=== PATIENT | female | born 1935 | race Caucasian/White ===

== ENCOUNTER 2016-04-14 14:00 | Outpatient (CLI) | payer MEDICARE, BC | END 2016-04-14 14:01 | disposition home or self-care (01) | LOC: HPCALD 14:00 | PROVIDERS: ATTEND Family Medicine | DX: I48.0 Paroxysmal atrial fibrillation (principal) ==

== ENCOUNTER 2016-04-14 14:16 | Outpatient (CLI) | payer MEDICARE, BC ==
--- NOTE | 2016-04-14 20:18 | RAD ---
CHEST TWO VIEWS 04/14/16 Comparison is made with the 03/22/15 study. The heart is normal in size. Calcification is seen in the aortic arch. No lobar consolidations or ef fusions were seen. It is ever so slightly more hazy in the right lower lobe than it was previously, but the finding is borderline at best. I cannot absolutely rule out an early infiltrate here, but th e finding is truly equivocal. The lungs are otherwise clear. IMPRESSION: Equivocal prominence of a few of the right lower lobe markings which may or may not be significant. POS: HOME
== END 2016-04-14 14:17 | disposition home or self-care (01) ==
LOC: BURRAD 14:16
PROVIDERS: ATTEND Family Medicine
DX: J06.9 Acute upper respiratory infection, unspecified (principal)
CPT/HCPCS: 71020

== ENCOUNTER 2016-04-15 15:44 | Outpatient (CLI) | payer MEDICARE, BC ==
[2016-04-15 16:37] LABS: Prothrombin Time 21.1 SEC (12.0-14.7)
== END 2016-04-15 15:45 | disposition home or self-care (01) ==
LOC: HPCALD 15:44
PROVIDERS: ATTEND Family Medicine
DX: I48.2 Chronic atrial fibrillation (principal)
CPT/HCPCS: 36415; 85610

== ENCOUNTER 2016-04-27 15:59 | Outpatient (CLI) | payer MEDICARE, BC ==
[2016-04-27 16:15] LABS: Prothrombin Time 27.4 SEC (12.0-14.7)
== END 2016-04-27 16:00 | disposition home or self-care (01) ==
LOC: HPCALD 15:59
PROVIDERS: ATTEND Family Medicine
DX: I48.91 Unspecified atrial fibrillation (principal)
CPT/HCPCS: 36415; 85610

== ENCOUNTER 2016-05-23 11:28 | Outpatient (CLI) | payer MEDICARE, BC, OTHER ==
[2016-05-23 13:17] LABS: Prothrombin Time 25.6 SEC (12.0-14.7)
== END 2016-05-23 11:29 | disposition home or self-care (01) ==
LOC: HPCALD 11:28
PROVIDERS: ATTEND Family Medicine
DX: I48.0 Paroxysmal atrial fibrillation (principal)
CPT/HCPCS: 36415; 85610

== ENCOUNTER 2016-06-20 15:03 | Outpatient (CLI) | payer MEDICARE, BC ==
[2016-06-20 15:26] LABS: Prothrombin Time 26.4 SEC (12.0-14.7)
== END 2016-06-20 15:04 | disposition home or self-care (01) ==
LOC: HPCALD 15:03
PROVIDERS: ATTEND Family Medicine
DX: I48.0 Paroxysmal atrial fibrillation (principal)
CPT/HCPCS: 36415; 85610

== ENCOUNTER 2016-08-04 13:53 | Outpatient (CLI) | payer MEDICARE, BC, OTHER ==
[2016-08-04 14:24] LABS: Prothrombin Time 22.9 SEC (12.0-14.7)
== END 2016-08-04 13:54 | disposition home or self-care (01) ==
LOC: HPCALD 13:53
PROVIDERS: ATTEND Family Medicine
DX: I48.0 Paroxysmal atrial fibrillation (principal)
CPT/HCPCS: 36415; 85610

== ENCOUNTER 2016-10-14 14:16 | Outpatient (CLI) | payer BC, MEDICARE ==
[2016-10-14 14:49] LABS: INR-International Normal Ratio 1.9; Prothrombin Time 22.7 SEC (12.0-14.7)
== END 2016-10-14 14:17 | disposition home or self-care (01) ==
LOC: HPCALD 14:16
PROVIDERS: ATTEND Family Medicine
DX: I48.0 Paroxysmal atrial fibrillation (principal)
CPT/HCPCS: 36415; 85610

== ENCOUNTER 2016-11-23 14:09 | Outpatient (CLI) | payer MEDICARE ==
[2016-11-23 14:26] LABS: INR-International Normal Ratio 1.5; Prothrombin Time 18.7 SEC (12.0-14.7)
== END 2016-11-23 14:10 | disposition home or self-care (01) ==
LOC: HPCALD 14:09
PROVIDERS: ATTEND Family Medicine
DX: Z51.81 Encounter for therapeutic drug level monitoring (principal); I48.0 Paroxysmal atrial fibrillation; Z79.01 Long term (current) use of anticoagulants
CPT/HCPCS: 36415; 85610

== ENCOUNTER 2017-10-02 08:55 | Emergency (ER) | payer MEDICARE | END 2017-10-02 09:20 | disposition home or self-care (01) | LOC: BURERS 08:55 | DX: H11.32 Conjunctival hemorrhage, left eye (principal); E78.5 Hyperlipidemia, unspecified; I10 Essential (primary) hypertension; I48.91 Unspecified atrial fibrillation; Z86.718 Personal history of other venous thrombosis and embolism | CPT/HCPCS: 99282 ==

== ENCOUNTER 2018-05-27 09:48 | Emergency (ER) | payer MEDICARE ==
--- NOTE | 2018-05-27 16:29 | RAD ---
LUMBAR SPINE THREE VIEWS: 05/27/2018 FINDINGS: Scoliosis, convex right, is present. No acute fracture is seen. There is no dislocation. Degenerat ed disks are noted at multiple levels, including L3-L4, L4-L5, and L5-S1. Disk space narrowing and o steophytes are present at each level, as well as vacuum phenomenon. Anterior osteophytes are promine nt in the lower lumbar levels. The aorta is partially calcified. The SI joints are symmetrical. IMPRESSION: Scoliosis and advanced degenerative disk disease, particularly in the lower lumbar spine. Cross-sect ional imaging would be needed to assess any neural impingement. POS: HOME
== END 2018-05-27 10:57 | disposition home or self-care (01) ==
LOC: BURERS 09:48
DX: M54.32 Sciatica, left side (principal); I10 Essential (primary) hypertension; I48.91 Unspecified atrial fibrillation; Z86.718 Personal history of other venous thrombosis and embolism; Z79.891 Long term (current) use of opiate analgesic; Z79.899 Other long term (current) drug therapy
CPT/HCPCS: 72100

== ENCOUNTER 2018-08-16 09:02 | Outpatient (CLI) | payer MEDICARE ==
--- NOTE | 2018-08-16 18:23 | ULT ---
RIGHT LOWER EXTREMITY VENOUS ULTRASOUND 08/16/18 Color duplex Doppler ultrasonography of the deep veins of the right lower extremity was performed. Al l deep veins were freely compressible from groin to ankle and there was normal Doppler responses to a ugmentation maneuvers. There were a few areas, for example in the common femoral region, we wondered if there might be a little residual remaining from her prior clot. I do not have a prior scan to comp are with however. IMPRESSION: No evidence of DVT. There may be small amounts of residual from a prior clot but there are no finding s typical of acute clot. POS: HOME
== END 2018-08-16 09:03 | disposition home or self-care (01) ==
LOC: BURULT 09:02
PROVIDERS: ATTEND Family Medicine
DX: M79.89 Other specified soft tissue disorders (principal)

== ENCOUNTER 2018-09-08 17:42 | Emergency (ER) | payer MEDICARE | END 2018-09-08 18:15 | disposition home or self-care (01) | LOC: BURERS 17:42 | DX: J18.1 Lobar pneumonia, unspecified organism (principal); H72.91 Unspecified perforation of tympanic membrane, right ear; I10 Essential (primary) hypertension; E78.5 Hyperlipidemia, unspecified; I48.91 Unspecified atrial fibrillation; Z86.718 Personal history of other venous thrombosis and embolism; Z79.899 Other long term (current) drug therapy | CPT/HCPCS: 99283 ==

== ENCOUNTER 2018-09-10 08:20 | Inpatient (IN) | payer MEDICARE ==
[2018-09-10 08:49] LABS: #Basophils 0.1 thou/uL (0.0-0.2); #Lymphocytes 1.5 thou/uL (1.20-3.40); #Monocytes 0.8 thou/uL (0.11-0.59); #Neutrophils 7.4 thou/uL (1.40-6.50); %Basophils 0.7 % (0.0-1.0); %Eosinophils 0.3 % (0.0-10.0); %Lymphocytes 14.9 % (21.0-51.0); %Monocytes 8.3 % (0.0-10.0); %Neutrophils 75.8 % (42.0-75.0); Hemoglobin 12.6 g/dL (12.0-16.0); Mean Corpuscular HGB CONC 32.2 g/dL (32.0-36.0); Mean Corpuscular Hemoglobin 30.9 pg (27.0-31.0); Mean Corpuscular Volume 95.8 fL (78.0-98.0); Mean Platelet Volume 7.7 fL (7.4-10.4); Platelet Count 264 thou/uL (130-400); RBC Distribution Width 11.6 % (11.5-14.5); Red Blood Cell (RBC) Count 4.09 mill/uL (4.20-5.40); White Blood Cell (WBC) Count 9.7 thou/uL (4.8-10.8)
--- NOTE | 2018-09-10 08:51 | RAD ---
RADIOGRAPH CHEST 2 VIEWS: DATE: 09/10/2018 HISTORY: 83-year-old female with cough FINDINGS: There is no airspace density, pulmonary edema, pleural effusion, pneumothorax, or cardiomegaly. Promi nent interstitial markings at bases of bilateral lower lobes, probably chronic. IMPRESSION: No acute cardiopulmonary findings.
[2018-09-10 09:04] LABS: ALT (SGPT) 20 U/L (8-55); AST (SGOT) 31 U/L (5-34); Albumin 3.4 g/dL (3.4-4.8); Alkaline Phosphatase 59 U/L (40-150); Anion Gap 12 mmol/L (10-20); BUN (Urea Nitrogen) 18 mg/dL (9.8-20.1); Bilirubin, Total 0.7 mg/dL (0.2-1.2); Calc. Creatinine Clearance 0 mL/min (70-130); Calcium 9.2 mg/dL (7.8-10.44); Carbon Dioxide 28 mmol/L (23-31); Chloride 102 mmol/L (98-107); Estimated GFR-MDRD 40; Globulin 3.3 g/dL (2.4-3.5); Glucose 117 mg/dL (83-110); Potassium 3.3 mmol/L (3.5-5.1); Protein, Total 6.7 g/dL (6.0-8.3); Sodium 139 mmol/L (136-145)
[2018-09-10] MEDS ORDERED: Sodium Chloride 0.9% 100 ML ONE (09:57)
[2018-09-10] MEDS ORDERED: cefTRIAXone\\ROCEPHIN 1 GM VIAL ONE (09:57)
[2018-09-10 10:06] LABS: INR-International Normal Ratio 1.9; PTT 34.5 SEC (22.9-36.1); Prothrombin Time 21.6 SEC (12.0-14.7)
[2018-09-10 11:39] VITALS: BMI 25.8
[2018-09-10] MEDS ORDERED: Gabapentin 300 MG CAP PO SCH (18:30)
[2018-09-10] MEDS ORDERED: Potassium Chloride 20 MEQ TAB PO ONE (18:30)
[2018-09-10] MEDS: Famotidine 20 MG TAB PO SCH (20:36)
[2018-09-10] MEDS: Magnesium Oxide 400 MG TAB PO SCH (20:36)
--- NOTE | 2018-09-11 01:17 | HP ---
CHIEF COMPLAINT: Persistent cough. HISTORY OF PRESENT ILLNESS: Ms. Ramires is an 83-year-old female, who presented to the emergency department today with complaints of minimally productive cough with reported onset early last week. She was evaluated in the ambulatory setting by Denise Stone, Nurse practitioner, who diagnosed her with postnasal drip and a nonproductive cough and treated the patient with Flonase and Mucinex DM plus benzonatate 200 mg. The patient states she also had diarrhea that started on September 05. She had no associated nausea or vomiting. She did have some sinus pressure during this period of time, but denies rhinorrhea or ear pain. She noted some bloody discharge from the right ear canal on September 07, but was not associated with any pain. The cough apparently worsened along with guarding of the abdomen and diarrhea, and the patient presented to the [place] ER on September 08. At that time, she was diagnosed with right lower lobe pneumonia based on the clinical exam. No imaging was performed at that time, and a perforated right TM. She was given a prescription for Levaquin 500 mg daily. She was discharged to home, but reports that she continued to cough. The diarrhea resolved. She presented back for re-evaluation today due to associated fatigue. She states now that the cough is productive of scant amount of sputum that is slightly discolored. Otherwise she has no new complaints. PAST MEDICAL HISTORY: 1. Atrial fibrillation. 2. Hypertension. 3. Hyperlipidemia. 4. History of DVT. 5. Varicose veins. 6. History of diverticulosis. 7. Personal history of colon polyps. 8. Lumbar degenerative arthritis at multiple levels. PAST SURGICAL HISTORY: 1. Vein stripping approximately 45 years ago. 2. Tonsillectomy. 3. Removal of throat "cyst" in 2007. 4. 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 5. Right lower extremity squamous cell carcinoma removal in October 2011. 6. Right middle finger release in April 2012. 7. Last colonoscopy, March of 2013. 8. Left hand surgery in 2016. 9. Venous ablation of small saphenous vein in 2017. SOCIAL HISTORY: Denies tobacco, alcohol, or illicit drug use. She is . Full code status. FAMILY HISTORY: Noncontributory. The patient received her Prevnar, November of 2014, and Pneumovax January of 2011, as well as her yearly influenza vaccination. ALLERGIES: PENICILLIN. MEDICATIONS: 1. Mucinex DM 1200/60 one p.o. daily. 2. Warfarin 3 mg p.o. daily. 3. Klor-Con 10 one p.o. daily. 4. Multivitamin one p.o. daily. 5. Magnesium oxide one p.o. b.i.d. 6. Lisinopril/HCTZ 20/25 one p.o. daily. 7. Gabapentin 300 mg two in the morning, one at noon, and three at bedtime. 8. Benzonatate 200 mg p.o. q.8 hours p.r.n. cough. 9. Lipitor 40 mg p.o. daily. 10. Amlodipine 5 mg p.o. daily. 11. Levaquin 500 mg p.o. daily, prescribed September 08. REVIEW OF SYSTEMS: GENERAL: The patient denies fever. Positive fatigue and generalized weakness since onset of her current symptoms. HEENT: Denies any vision changes. Remainder as per HPI. CARDIOVASCULAR: Denies chest pain, palpitations, orthopnea, or PND. History of atrial fibrillation. RESPIRATORY: Denies associated shortness of breath with cough. No hemoptysis. GI: Last episode of diarrhea was on September 08 without any episodes on September 09 or today. No nausea or vomiting. Abdominal pain associated with the severe cough to the right upper quadrant, which was mainly present on September 08, but has resolved now. GENITOURINARY: The patient reports an episode of incontinence, which is not completely out of character for her, but deems that was secondary and associated with a cough. Denies dysuria or incomplete voiding. LYMPH: The patient with chronic swelling of the right lower extremity greater than the left lower extremity secondary to venous stasis. HEMATOLOGIC: Denies bleeding other than the little bit that she noted in the ear canal late last week. PSYCHIATRIC: Denies depression or anxiety. She has had some slow progressive memory decline over the past several years. NEUROLOGICAL: Denies any focal weakness, numbness, or paresthesias. PHYSICAL EXAMINATION: VITAL SIGNS: In the emergency room, blood pressure 125/84, pulse 84, 97% O2 saturation on room air, respirations 19, temperature 98.5, 6/10 pain. Per the ER physician, the patient's O2 saturation dropped down to 90% with cough observed. At my exam, temperature 99.1, pulse 91, respirations 20, 94% O2 saturation on room air, and blood pressure 131/71. GENERAL: Well-developed, well-nourished female, who is alert, oriented to person, place, and time, in no acute distress. HEENT: Normocephalic and atraumatic. Pupils are equally round and reactive to light and accommodation. Extraocular muscles intact. Nares are patent without discharge. Tongue protrudes in the midline. Per ED physician, the right TM is perforated. NECK: Supple without lymphadenopathy, thyromegaly, JVD, or bruit. HEART: Regular rate, but irregular rhythm. Normal S1 and S2. No murmurs, clicks, rubs, or gallops. LUNGS: Crackles to the right base, diminished left base, otherwise clear to auscultation. No wheezes or increased work of breathing. Dry cough noted. GI: Positive bowel sounds in all four quadrants. Soft, nontender, and nondistended. No masses, guarding, or rebound tenderness. EXTREMITIES: No cyanosis or clubbing. Trace ankle edema with venous stasis changes on the left, 1 mm pretibial edema on the right with venous stasis changes and pink discoloration. NEUROLOGIC: Cranial nerves 2 through 12 grossly intact. No focal deficits. LABORATORY DATA: White count 9.7 with 76% neutrophils, 15% lymphocytes, hemoglobin 12.6, hematocrit 39.2, platelets 264. PT 21.6, INR 1.9, PTT 35.5. Sodium 139, potassium 3.3, chloride 102, bicarb 28, BUN 18, creatinine 1.26, glucose 117, calcium 9.2, AST 31, ALT 20, alkaline phosphatase 59, albumin 3.4. Blood culture x2 and sputum culture and gram stain obtained in the ER pending. Chest x-ray shows no acute cardiopulmonary findings, but there are some interstitial markings at the bilateral bases. ASSESSMENT AND PLAN: 1. Community acquired pneumonia. The patient essentially has failed outpatient treatment and will be admitted for IV antibiotics, DuoNebs, followup of cultures, and imaging. We will prescribe antitussives p.r.n. Given the patient's history of diarrhea, if this reoccurs, may need to get stool studies. The patient was given Rocephin and Levaquin in the emergency room. We will continue Levaquin. 2. Hypokalemia. We will give the patient potassium for one dose and repeat her lab studies in the morning. 3. Right acute otitis media with perforation of TM. The antibiotics should cover this. 4. Chronic atrial fibrillation. The patient's warfarin will be continued with Pharmacy to adjust with a goal INR of 2 to 3. 5. Remote history of deep venous thrombosis. Please see problem above. 6. Hyperlipidemia. The patient's statin will be continued. 7. Hypertension. The patient's antihypertensives will be continued. 8. Lumbar degenerative disease. The patient's gabapentin will be continued. 9. Prophylaxis. We will place the patient on Pepcid and she is already on anticoagulation. 10. Code status. The patient's desire full code status. Job ID: [id number]
[2018-09-11 04:41] LABS: Anion Gap 14 mmol/L (10-20); BUN (Urea Nitrogen) 15 mg/dL (9.8-20.1); Calc. Creatinine Clearance 45 mL/min (70-130); Calcium 8.6 mg/dL (7.8-10.44); Carbon Dioxide 22 mmol/L (23-31); Chloride 106 mmol/L (98-107); Estimated GFR-MDRD 52; Glucose 99 mg/dL (83-110); Sodium 139 mmol/L (136-145)
[2018-09-11 04:48] LABS: Hemoglobin 11.9 g/dL (12.0-16.0); Mean Corpuscular HGB CONC 33.9 g/dL (32.0-36.0); Mean Corpuscular Hemoglobin 31.3 pg (27.0-31.0); Mean Corpuscular Volume 93.6 fL (78.0-98.0); Mean Platelet Volume 6.9 fL (7.4-10.4); Platelet Count 225 thou/uL (130-400); RBC Distribution Width 11.3 % (11.5-14.5); Red Blood Cell (RBC) Count 3.79 mill/uL (4.20-5.40); White Blood Cell (WBC) Count 7.6 thou/uL (4.8-10.8)
[2018-09-11 04:56] LABS: Eosinophils 2 % (0-10); Monocytes 7 % (0-10)
[2018-09-11 04:57] LABS: Lymphocytes 29 % (21-51)
[2018-09-11 04:58] LABS: MDiff Complete? YES; Manual Diff?? YES
[2018-09-11 04:59] LABS: Neutrophil 60 % (42-75); Platelet Morphology Comment Appears Adequate
[2018-09-11 05:00] LABS: RBC Morphology Normal
[2018-09-11 05:01] LABS: Prothrombin Time 23.1 SEC (12.0-14.7)
[2018-09-11 05:04] LABS: Potassium 2.9 mmol/L (3.5-5.1)
[2018-09-11] MEDS ORDERED: Potassium Chloride 20 MEQ TAB PO SCH (05:30)
[2018-09-11] MEDS: Gabapentin 300 MG CAP PO SCH ×3 (05:31→17:47)
--- NOTE | 2018-09-11 07:58 | RAD ---
CHEST TWO VIEWS: Date: 09-11-18 Comparison: 09-10-18 FINDINGS: There is increased infiltrate in the lung bases posteriorly on the lateral view compared to yesterday . While some of the basilar markings appear chronic. With increase in markings since yesterday, a sup erimposed pneumonia is suspected. This is better seen on the lateral view, and difficult to tell whic h lobe, though the right lower lobe seems a little more suspect. The upper lobes are clear. The heart size remains normal and there are no congestive changes. Calcification is seen in the aortic arch. IMPRESSION: Increasing basilar infiltrates behind the heart. Presumed to be a combination of chronic fibrotic wild nges with superimposed acute infection. POS: HOME
[2018-09-11] MEDS: Famotidine 20 MG TAB PO SCH ×2 (08:26→21:07)
[2018-09-11] MEDS: Hydrochlorothiazide 25 MG TAB PO SCH (08:27)
[2018-09-11] MEDS: Magnesium Oxide 400 MG TAB PO SCH ×2 (08:27→21:07)
[2018-09-11] MEDS: Lisinopril 20 MG TAB PO SCH (08:28)
[2018-09-11] MEDS ORDERED: guaiFENesin/DM ER PO SCH (09:00)
[2018-09-11] MEDS ORDERED: guaiFENesin ER 600 MG TAB PO SCH (13:30)
[2018-09-11] MEDS ORDERED: Loperamide HCl 2 MG CAP PO PRN (15:06)
[2018-09-11] MEDS: Floranex Packet PO SCH (15:50)
[2018-09-11] MEDS ORDERED: Potassium Chloride 10 MEQ TAB PO SCH (17:00)
[2018-09-11] MEDS: Warfarin Sodium 3 MG TAB PO SCH (17:46)
[2018-09-11] MEDS: Multivit, Therapeutic 1 TAB PO SCH (17:48)
[2018-09-11] MEDS: Amlodipine 5 MG TAB PO SCH (17:48)
[2018-09-11] MEDS: Potassium Chloride 20 MEQ TAB PO SCH (17:52)
[2018-09-11] MEDS: Atorvastatin Calcium 40 MG TAB PO SCH (17:52)
[2018-09-11] MEDS: guaiFENesin ER 600 MG TAB PO SCH (21:07)
[2018-09-12 04:30] LABS: #Basophils 0.1 thou/uL (0.0-0.2); #Eosinphils 0.2 thou/uL (0.0-0.7); #Lymphocytes 1.4 thou/uL (1.20-3.40); #Monocytes 0.8 thou/uL (0.11-0.59); #Neutrophils 6.8 thou/uL (1.40-6.50); %Basophils 0.8 % (0.0-1.0); %Eosinophils 2.3 % (0.0-10.0); %Lymphocytes 14.8 % (21.0-51.0); %Monocytes 8.2 % (0.0-10.0); %Neutrophils 73.9 % (42.0-75.0); Hemoglobin 10.6 g/dL (12.0-16.0); Mean Corpuscular Hemoglobin 31.5 pg (27.0-31.0); Mean Corpuscular Volume 95.4 fL (78.0-98.0); Mean Platelet Volume 6.7 fL (7.4-10.4); Platelet Count 278 thou/uL (130-400); RBC Distribution Width 11.7 % (11.5-14.5); Red Blood Cell (RBC) Count 3.36 mill/uL (4.20-5.40); White Blood Cell (WBC) Count 9.2 thou/uL (4.8-10.8)
[2018-09-12 04:40] LABS: Anion Gap 14 mmol/L (10-20); BUN (Urea Nitrogen) 15 mg/dL (9.8-20.1); Calc. Creatinine Clearance 41 mL/min (70-130); Calcium 8.3 mg/dL (7.8-10.44); Carbon Dioxide 22 mmol/L (23-31); Chloride 108 mmol/L (98-107); Estimated GFR-MDRD 47; Glucose 105 mg/dL (83-110); Potassium 3.5 mmol/L (3.5-5.1); Sodium 140 mmol/L (136-145)
[2018-09-12 04:50] LABS: INR-International Normal Ratio 2.4; Prothrombin Time 25.9 SEC (12.0-14.7)
[2018-09-12] MEDS: Gabapentin 300 MG CAP PO SCH ×4 (05:03→17:14)
--- NOTE | 2018-09-12 08:06 | RAD ---
CHEST TWO VIEWS: Date: 09-12-18 Comparison: 09-11-18 FINDINGS: Comparison with the prior study shows slight improvement in the retrocardiac infiltrates. There has b een no substantial worsening in the interval on any of the views. The upper lobes remain clear. There are no large effusions. The heart size is normal. IMPRESSION: Very slight improvement since yesterday. POS: HOME
[2018-09-12] MEDS: Hydrochlorothiazide 25 MG TAB PO SCH (10:03)
[2018-09-12] MEDS: Famotidine 20 MG TAB PO SCH ×2 (10:03→20:32)
[2018-09-12] MEDS: Floranex Packet PO SCH ×2 (10:03→10:33)
[2018-09-12] MEDS: guaiFENesin ER 600 MG TAB PO SCH ×2 (10:04→20:32)
[2018-09-12] MEDS: Lisinopril 20 MG TAB PO SCH (10:04)
[2018-09-12] MEDS: Magnesium Oxide 400 MG TAB PO SCH ×2 (10:04→20:33)
[2018-09-12] MEDS: Warfarin Sodium 3 MG TAB PO SCH (17:10)
[2018-09-12] MEDS: Potassium Chloride 20 MEQ TAB PO SCH (17:13)
[2018-09-12] MEDS: Atorvastatin Calcium 40 MG TAB PO SCH (17:13)
[2018-09-12] MEDS: Amlodipine 5 MG TAB PO SCH (17:14)
[2018-09-12] MEDS: Multivit, Therapeutic 1 TAB PO SCH (17:14)
[2018-09-13 05:39] LABS: Platelet Count 330 thou/uL (130-400)
[2018-09-13 05:47] LABS: INR-International Normal Ratio 2.5; Prothrombin Time 27.2 SEC (12.0-14.7)
[2018-09-13] MEDS: Gabapentin 300 MG CAP PO SCH (06:21)
[2018-09-13] MEDS: Floranex Packet PO SCH (08:27)
[2018-09-13] MEDS: guaiFENesin ER 600 MG TAB PO SCH (08:28)
[2018-09-13] MEDS: Lisinopril 20 MG TAB PO SCH (08:29)
[2018-09-13] MEDS: Magnesium Oxide 400 MG TAB PO SCH (08:29)
[2018-09-13] MEDS: Famotidine 20 MG TAB PO SCH (08:31)
[2018-09-13] MEDS: Hydrochlorothiazide 25 MG TAB PO SCH (08:31)
[2018-09-13 10:49] VITALS: BP 108/69; TEMP 97.6
--- NOTE | 2018-09-14 05:57 | DIS ---
DATE OF ADMISSION: 09/10/2018 DATE OF DISCHARGE: 09/13/2018 ADMISSION DIAGNOSES: Community-acquired pneumonia, hypokalemia, chronic atrial fibrillation, hypertension, dyslipidemia, and right acute otitis media with perforated tympanic membrane. PROCEDURES: 09/10/2018, chest x-ray showed no acute cardiopulmonary findings. 09/11/2018, chest x-ray showed increasing basilar infiltrates behind the heart, presumed to be a combination of chronic fibrotic changes with superimposed acute infection. 09/12/2018, chest x-ray showed very slight improvement since yesterday. HOSPITAL COURSE: An 83-year-old female, who presented to [facility] Emergency Department with complaints of upper respiratory infection symptoms including productive cough, rhinorrhea, and ear pain. She had been seen in the outpatient setting prior to her evaluation in the emergency department and was treated symptomatically with Flonase, Mucinex, and Tessalon Perles. She was seen shortly thereafter in the emergency department and diagnosed with right lower lobe pneumonia based on clinical exam, initiated on Levaquin 500 mg p.o. daily, and returned home, however, again returned back to the emergency department with the aforementioned symptoms. Secondary to the patient's lack of improvement, she was admitted for community-acquired pneumonia with initiation of IV antibiotic therapy. The patient received IV Levaquin daily during her stay. She remained afebrile with no leukocytosis. Her blood cultures have shown no growth beyond 48 hours. Her respiratory culture showed moderate normal respiratory rupert present. Her chest x-ray has shown improvement as noted. The patient's productive cough has improved during her stay. She has remained off supplemental oxygen and is breathing at her baseline. She is amenable to discharge back to her home setting and complete an oral course of antibiotics of which she has received just prior to admission; she will complete her oral course of p.o. Levaquin over the next 5 to 6 days at home. DISPOSITION: The patient will discharge back to her home setting, where she lives with her . She may follow up with Dr. Holman in clinical setting next week. DISCHARGE MEDICATIONS: 1. Mucinex DM 1200/60 one p.o. daily. 2. Coumadin 3 mg p.o. daily. 3. Klor-Con 10 mEq p.o. daily. 4. Multivitamin daily. 5. Magnesium oxide p.o. b.i.d. 6. Lisinopril hydrochlorothiazide 20-25 p.o. daily. 7. Gabapentin 300 mg two in the morning, one at noon, and three at bedtime. 8. Tessalon Perles 200 mg q.8 hours p.r.n. 9. Lipitor 40 mg p.o. at bedtime. 10. Amlodipine 5 mg daily. 11. Levaquin 500 mg p.o. daily and to complete her one week course, which will be 5-6 tablets at home. Job ID: [id number] MTDD
== END 2018-09-13 11:30 | disposition home or self-care (01) | DRG 195 ==
LOC: BURERS 08:20 → BURMED 09:30
PROVIDERS: ADMIT Family Medicine; ATTEND Family Medicine
DX: J18.1 Lobar pneumonia, unspecified organism (principal); E87.6 Hypokalemia; H72.91 Unspecified perforation of tympanic membrane, right ear; H66.91 Otitis media, unspecified, right ear; I48.2 Chronic atrial fibrillation; E78.5 Hyperlipidemia, unspecified; I10 Essential (primary) hypertension; M47.816 Spondylosis without myelopathy or radiculopathy, lumbar region; Z86.718 Personal history of other venous thrombosis and embolism; Z90.89 Acquired absence of other organs; Z88.0 Allergy status to penicillin; Z79.01 Long term (current) use of anticoagulants; Z79.2 Long term (current) use of antibiotics
CPT/HCPCS: 36415; 71046; 80048; 80053; 85014; 85018; 85025; 85049; 85610; 85730; 87040; 87070; 87205; 93005; 94640; 94760; 96365; 96375; J0696; J1956; J3490; J7620

== ENCOUNTER 2018-10-23 19:54 | Emergency (ER) | payer MEDICARE ==
[2018-10-23 20:41] LABS: Anion Gap 12 mmol/L (10-20); BUN (Urea Nitrogen) 17 mg/dL (9.8-20.1); Calc. Creatinine Clearance 0 mL/min (70-130); Calcium 9.2 mg/dL (7.8-10.44); Carbon Dioxide 28 mmol/L (23-31); Chloride 107 mmol/L (98-107); Estimated GFR-MDRD 40; Glucose 142 mg/dL (83-110); Potassium 3.4 mmol/L (3.5-5.1); Sodium 144 mmol/L (136-145)
[2018-10-23 20:49] LABS: INR-International Normal Ratio 1.4; PTT 31.4 SEC (22.9-36.1); Prothrombin Time 16.9 SEC (12.0-14.7)
[2018-10-23] MEDS ORDERED: Enoxaparin Sodium 100 MG/ML SYRINGE ONE (21:03)
== END 2018-10-23 21:15 | disposition home or self-care (01) ==
LOC: BURERS 19:54
DX: M79.89 Other specified soft tissue disorders (principal); R79.1 Abnormal coagulation profile; E78.5 Hyperlipidemia, unspecified; I10 Essential (primary) hypertension; I48.91 Unspecified atrial fibrillation; Z86.718 Personal history of other venous thrombosis and embolism; Z79.899 Other long term (current) drug therapy; Z79.01 Long term (current) use of anticoagulants
CPT/HCPCS: 36415; 80048; 85610; 85730; 96372; 99284; J1650

== ENCOUNTER 2018-10-25 09:33 | Outpatient (CLI) | payer MEDICARE ==
[2018-10-25 11:02] LABS: INR-International Normal Ratio 1.5; Prothrombin Time 17.8 SEC (12.0-14.7)
--- NOTE | 2018-10-25 20:58 | ULT ---
BILATERAL LOWER EXTREMITY VENOUS ULTRASOUND 10/25/18 Color duplex Doppler ultrasonography of the deep veins of each lower extremity was measured. Comparis on is made with a prior study of the right leg from 08/16/18. No echogenic clot was seen on today's exa m. All veins were freely compressible from groin to ankle. There was no abnormal response to augmenta tion maneuvers. IMPRESSION: No evidence for DVT today. POS: HOME
== END 2018-10-25 09:34 | disposition home or self-care (01) ==
LOC: BURULT 09:33
PROVIDERS: ATTEND Family Medicine
DX: I82.409 Acute embolism and thrombosis of unspecified deep veins of unspecified lower extremity (principal); M79.605 Pain in left leg
CPT/HCPCS: 36415; 85610; 93970

== ENCOUNTER 2018-11-01 09:36 | Outpatient (CLI) | payer MEDICARE ==
--- NOTE | 2018-11-01 13:10 | ULT ---
US Renal Bilateral STANDARD: 11/01/2018 12:00 AM CLINICAL HISTORY: Acute renal failure. STUDY: Renal ultrasound COMPARISON: None. FINDINGS: Right kidney: Echogenicity: Normal. Masses/cysts: None. Hydronephrosis: None. Calcifications: None. Length: 11.2 cm Left kidney: Echogenicity: Normal. Masses/cysts: None. Hydronephrosis: None. Calcifications: None. Length: 9.0 cm Limited visualization of the urinary bladder is unremarkable. IMPRESSION: Unremarkable renal ultrasound
== END 2018-11-01 09:37 | disposition home or self-care (01) ==
LOC: BURULT 09:36
PROVIDERS: ATTEND Internal Medicine Nephrology
DX: N17.9 Acute kidney failure, unspecified (principal)
CPT/HCPCS: 76770

== ENCOUNTER 2018-11-11 11:02 | Emergency (ER) | payer MEDICARE ==
[2018-11-11 11:46] LABS: #Basophils 0.1 thou/uL (0.0-0.2); #Eosinphils 0.1 thou/uL (0.0-0.7); #Lymphocytes 1.5 thou/uL (1.20-3.40); #Monocytes 0.3 thou/uL (0.11-0.59); #Neutrophils 4.2 thou/uL (1.40-6.50); %Basophils 1.3 % (0.0-1.0); %Eosinophils 1.3 % (0.0-10.0); %Neutrophils 68.4 % (42.0-75.0); Hemoglobin 13.6 g/dL (12.0-16.0); Mean Corpuscular HGB CONC 31.3 g/dL (32.0-36.0); Mean Corpuscular Volume 95.9 fL (78.0-98.0); Platelet Count 231 thou/uL (130-400); RBC Distribution Width 12.7 % (11.5-14.5); Red Blood Cell (RBC) Count 4.53 mill/uL (4.20-5.40); White Blood Cell (WBC) Count 6.1 thou/uL (4.8-10.8)
[2018-11-11 11:56] LABS: Prothrombin Time 26.9 SEC (12.0-14.7)
[2018-11-11 11:57] LABS: INR-International Normal Ratio 2.4; PTT 35.5 SEC (22.9-36.1)
[2018-11-11 11:59] LABS: Anion Gap 14 mmol/L (10-20); BUN (Urea Nitrogen) 13 mg/dL (9.8-20.1); Calc. Creatinine Clearance 0 mL/min (70-130); Carbon Dioxide 24 mmol/L (23-31); Chloride 107 mmol/L (98-107); Estimated GFR-MDRD 58; Glucose 187 mg/dL (83-110); Potassium 3.1 mmol/L (3.5-5.1); Sodium 142 mmol/L (136-145)
== END 2018-11-11 11:39 | disposition short-term general hospital (02) ==
LOC: BURERS 11:02
DX: M79.89 Other specified soft tissue disorders (principal); E78.5 Hyperlipidemia, unspecified; I10 Essential (primary) hypertension; I48.91 Unspecified atrial fibrillation; Z86.711 Personal history of pulmonary embolism; Z79.01 Long term (current) use of anticoagulants; Z79.899 Other long term (current) drug therapy
CPT/HCPCS: 36415; 80048; 85025; 85610; 85730; 99284

== ENCOUNTER 2019-06-18 14:32 | Outpatient (CLI) | payer MEDICARE ==
--- NOTE | 2019-06-19 07:57 | RAD ---
XR Lumbar Spine 2 Or 3 View History: Flank pain Comparison: Radiograph May 2018 Findings: Moderate dextro scoliosis lumbar spine. Multilevel degenerative disc space height loss. No acute fracture. Mild vascular calcifications. Moderate facet arthrosis throughout the lumbar spine. Advanced degenerative disc space height loss at L5/S1. Impression: Mild progressive dextroscoliosis with multilevel degenerative disc space height loss. No acute fracture or malalignment.
== END 2019-06-18 14:33 | disposition home or self-care (01) ==
LOC: BURRAD 14:32
PROVIDERS: ATTEND Registered Nurse Community Health
DX: R10.9 Unspecified abdominal pain (principal); M41.9 Scoliosis, unspecified; M51.87 Other intervertebral disc disorders, lumbosacral region
CPT/HCPCS: 72100

== ENCOUNTER 2019-12-11 09:34 | Emergency (ER) | payer MEDICARE ==
[2019-12-11] MEDS ORDERED: Cyclobenzaprine 10 MG TAB ONE (09:57)
[2019-12-11] MEDS ORDERED: Ibuprofen 200 MG TAB ONE (09:57)
== END 2019-12-11 10:00 | disposition home or self-care (01) ==
LOC: BURERS 09:34
DX: S46.911A Strain of unspecified muscle, fascia and tendon at shoulder and upper arm level, right arm, initial encounter (principal); E78.5 Hyperlipidemia, unspecified; I10 Essential (primary) hypertension; I48.91 Unspecified atrial fibrillation; X58.XXXA Exposure to other specified factors, initial encounter
CPT/HCPCS: 99283

== ENCOUNTER 2019-12-20 18:17 | Emergency (ER) | payer MEDICARE ==
--- NOTE | 2019-12-20 19:35 | RAD ---
RIGHT SHOULDER: 12/20/19 Three views. HISTORY: Shoulder pain. There is prominent hypertrophic changes to the AC joint. AC joint alignment is normal. Humeral head i s normally positioned. No fracture or dislocation identified. IMPRESSION: No acute findings. POS: [facility]
[2019-12-20] MEDS ORDERED: Triamcinolone 40 MG/ML VIAL ONE ×2 (19:41→19:42)
[2019-12-20] MEDS ORDERED: Lidocaine 1% PF 5 ML VIAL ONE (19:49)
== END 2019-12-20 20:24 | disposition home or self-care (01) ==
LOC: BURERS 18:17
DX: M75.31 Calcific tendinitis of right shoulder (principal); E78.5 Hyperlipidemia, unspecified; I10 Essential (primary) hypertension; Z86.718 Personal history of other venous thrombosis and embolism; I48.91 Unspecified atrial fibrillation; Z79.899 Other long term (current) drug therapy
CPT/HCPCS: 20610; J3301

== ENCOUNTER 2019-12-24 11:38 | Emergency (ER) | payer MEDICARE ==
[2019-12-24 12:33] LABS: #Basophils 0.1 thou/uL (0.0-0.2); #Eosinphils 0.2 thou/uL (0.0-0.7); #Monocytes 1.2 thou/uL (0.11-0.59); #Neutrophils 8.5 thou/uL (1.40-6.50); %Basophils 0.9 % (0.0-1.0); %Eosinophils 1.7 % (0.0-10.0); %Lymphocytes 16.6 % (21.0-51.0); %Monocytes 10.2 % (0.0-10.0); %Neutrophils 70.5 % (42.0-75.0); Mean Corpuscular HGB CONC 31.4 g/dL (32.0-36.0); Mean Corpuscular Hemoglobin 30.7 pg (27.0-31.0); Mean Corpuscular Volume 97.7 fL (78.0-98.0); Mean Platelet Volume 8.2 fL (7.4-10.4); Platelet Count 276 thou/uL (130-400); Red Blood Cell (RBC) Count 4.55 mill/uL (4.20-5.40); White Blood Cell (WBC) Count 12.1 thou/uL (4.8-10.8)
[2019-12-24 12:48] LABS: Anion Gap 13 mmol/L (10-20); BUN (Urea Nitrogen) 21 mg/dL (9.8-20.1); Calc. Creatinine Clearance 0 mL/min (70-130); Calcium 8.5 mg/dL (7.8-10.44); Carbon Dioxide 26 mmol/L (23-31); Chloride 107 mmol/L (98-107); Estimated GFR-MDRD 61; Glucose 137 mg/dL (83-110); Potassium 3.6 mmol/L (3.5-5.1); Sodium 142 mmol/L (136-145)
[2019-12-24 12:55] LABS: Prothrombin Time Greater than 150.0 sec (12.0-14.7)
[2019-12-24 12:56] LABS: PTT 107.3 sec (22.9-36.1)
[2019-12-24] MEDS ORDERED: Phytonadione 10 MG/ML AMP ONE (13:09)
[2019-12-24 13:25] LABS: Bilirubin Small (Negative); Blood, Urine Large (Negative); Clarity Turbid (Clear); Glucose, Urine (Dipstick) Negative (Negative); Ketone, Urine Negative (Negative); Leukocyte Negative (Negative); Nitrite Negative (Negative); Protein, Urine (Dipstick) 100 mg/dL (Neg-Trace); Urobilinogen 0.2 mg/dL (Less than 2); pH, Urine 5.5 (5.0-9.0)
[2019-12-24 13:26] LABS: Specific Gravity, Urine 1.031 (1.002-1.036)
[2019-12-24 13:27] LABS: Bacteria/HPF 2+ HPF (None Seen); RBC/HPF Greater than 50 HPF (0-3); Squamous Epithelial 0-3 HPF (0-3); WBC/HPF 0-3 HPF (0-3)
== END 2019-12-24 13:58 | disposition home or self-care (01) ==
LOC: BURERS 11:38
DX: R79.1 Abnormal coagulation profile (principal); I10 Essential (primary) hypertension; E78.5 Hyperlipidemia, unspecified; I48.91 Unspecified atrial fibrillation; Z86.718 Personal history of other venous thrombosis and embolism; Z79.01 Long term (current) use of anticoagulants; Z79.899 Other long term (current) drug therapy
CPT/HCPCS: 80048; 81003; 81015; 85025; 85730; 87086; 96372; 99284; J3430

== ENCOUNTER 2020-06-05 18:41 | Emergency (ER) | payer MEDICARE ==
[2020-06-05] MEDS ORDERED: Ibuprofen 800 MG TAB ONE (19:13)
[2020-06-05 19:22] LABS: Bilirubin Moderate (Negative); Blood, Urine Moderate (Negative); Clarity Cloudy (Clear); Glucose, Urine (Dipstick) Negative (Negative); Ketone, Urine 15 mg/dL (Negative); Leukocyte Trace (Negative); Nitrite Negative (Negative); Protein, Urine (Dipstick) 100 mg/dL (Neg-Trace); Specific Gravity, Urine 1.025 (1.005-1.030)
[2020-06-05 19:26] LABS: Bacteria/HPF 3+ HPF (None Seen)
[2020-06-05 19:27] LABS: Mucous/LPF 2+ LPF (<2+)
--- NOTE | 2020-06-05 19:38 | RAD ---
Exam: Lumbar spine 3 views COMPARISON: 06/18/2019 HISTORY: Intermittent pain. FINDINGS: 5 lumbar type vertebra. Stable rightward curvature of the lumbar spine. Lumbar spine verteb ral body height is maintained. No fracture. Vacuum disc phenomenon at L3-L4. Prominent osteophyte formation at L3-L4, L4-L5 and L5-S1. There is vacuum disc phenomenon with severe loss of disc space h eight in the lumbar sacral junction. There is facet hypertrophy at L3, L4 and L5 Visualized sacrum and bony pelvis are intact. IMPRESSION: 1. No fracture 2. Chronic multilevel degenerative changes throughout the lumbar spine.
== END 2020-06-05 20:01 | disposition home or self-care (01) ==
LOC: BURERS 18:41
DX: M54.5 Low back pain (principal); R50.9 Fever, unspecified; T50.B95A Adverse effect of other viral vaccines, initial encounter; E78.5 Hyperlipidemia, unspecified; I10 Essential (primary) hypertension; I48.91 Unspecified atrial fibrillation; Z86.718 Personal history of other venous thrombosis and embolism; Z79.899 Other long term (current) drug therapy; Z79.01 Long term (current) use of anticoagulants
CPT/HCPCS: 72100; 81003; 81015

== ENCOUNTER 2022-04-06 17:05 | Emergency (ER) | payer MEDICARE | END 2022-04-06 17:25 | disposition left against medical advice (07) | LOC: BURERS 17:05 | DX: Z53.21 Procedure and treatment not carried out due to patient leaving prior to being seen by health care provider (principal) ==

== ENCOUNTER 2023-06-07 10:15 | Emergency (ER) | payer MEDICARE | END 2023-06-07 10:42 | disposition home or self-care (01) | LOC: BURERS 10:15 | DX: H10.12 Acute atopic conjunctivitis, left eye (principal); I10 Essential (primary) hypertension; I48.91 Unspecified atrial fibrillation; E78.00 Pure hypercholesterolemia, unspecified; Z79.84 Long term (current) use of oral hypoglycemic drugs; Z79.01 Long term (current) use of anticoagulants; Z79.899 Other long term (current) drug therapy | CPT/HCPCS: 99283 ==